=== PATIENT | male | born 2000 | race Caucasian/White ===

== ENCOUNTER 2022-05-07 14:41 | Emergency (ER) | payer MEDICAID ==
[~2022-05-07] VITALS: Ht 190.5 cm; Wt 118.0 kg
[2022-05-07 15:14] VITALS: BP 139/81
[2022-05-07] MEDS ORDERED: HYDROCODONE/ACETAMINOPHEN 5/325MG TABLET PO ONE (15:15)
[2022-05-07] MEDS ORDERED: IBUP-2029 MT (15:34)
== END 2022-05-07 16:13 | disposition home or self-care (01) ==
LOC: ER 15:04
DX: M79.672 Pain in left foot (principal); V43.62XA Car passenger injured in collision with other type car in traffic accident, initial encounter; Y93.89 Activity, other specified; Y92.410 Unspecified street and highway as the place of occurrence of the external cause
CPT/HCPCS: 73630; 99283; Z7610